=== PATIENT | female | born 1990 | race Two or more races ===

== ENCOUNTER 2018-05-30 14:16 | Emergency (ER) | payer OTHER ==
[~2018-05-30] VITALS: Ht 152.4 cm; Wt 68.0 kg
[2018-05-30] MEDS ORDERED: ONDANSETRON HCL/PF 4 MG/2 ML VIAL IVP ONE (14:30)
[2018-05-30] MEDS ORDERED: MORPHINE SULFATE INJ 2 MG/ML DISP.SYRIN IV ONE (14:30)
[2018-05-30] MEDS ORDERED: IV NS 0.9% 500 ML BAG IV ONE (14:30)
[2018-05-30 14:39] LABS: BASOPHILS % (AUTO) 0.7 % (0.0-2.0); EOSINOPHILS % (AUTO) 0.6 % (0.0-6.0); HEMATOCRIT 36 % (33-45); HEMOGLOBIN 12.1 g/dL (11.5-14.8); LYMPHOCYTES # (AUTO) 1.6 /CMM (0.8-4.8); LYMPHOCYTES % (AUTO) 23.5 % (20.0-44.0); MEAN CORPUSCULAR HGB CONC 34 g/dl (31.0-36.0); MEAN CORPUSCULAR VOLUME 95 fL (82-100); MONOCYTES # (AUTO) 0.5 /CMM (0.1-1.30); MONOCYTES % (AUTO) 7.6 % (2.0-12.0); NEUTROPHILS # (AUTO) 4.5 /CMM (1.8-8.9); NEUTROPHILS % (AUTO) 67.6 % (43.0-81.0); PLATELET COUNT (AUTO) 351 /CMM (150-450); RED BLOOD CELL COUNT(AUTO) 3.77 MIL/uL (4.0-5.2); WHITE BLOOD COUNT (AUTO) 6.6 K/uL (4.3-11.0)
[2018-05-30 14:47] LABS: CALCIUM, SERUM 9.2 mg/dL (8.5-10.1); CREATININE 0.7 mg/dL (0.6-1.3); POTASSIUM 3.4 mmol/L (3.5-5.1)
[2018-05-30] MEDS ORDERED: MORPHINE SULFATE INJ 4 MG/ML DISP.SYRIN ONE (14:47)
[2018-05-30] MEDS ORDERED: ONDANSETRON HCL/PF 4 MG/2 ML VIAL ONE (14:47)
--- NOTE | 2018-05-30 14:50 | NUR ---
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 REPORTS 1 EPISODE OF HEMATURIA AFTER ARRIVAL TO ER. RESP EVEN UNLABORED. SKIN WARM DRY. PT GUARDING, ROLLING AROUND ON BED, MOANING. MEDICATED PER MD ORDER.
[2018-05-30 14:52] LABS: ALBUMIN 4.1 g/dL (3.4-5.0); BILIRUBIN,DIRECT 0.1 mg/dL (0.0-0.2); BILIRUBIN,TOTAL 0.3 mg/dL (0.2-1.0); TOTAL PROTEIN, SERUM 7.9 g/dL (6.4-8.2)
[2018-05-30 14:53] LABS: APPEARANCE,URINE Cloudy (CLEAR); BILIRUBIN,URINE SMALL (NEGATIVE); BLOOD, URINE Large Ery/uL (NEGATIVE); COLOR,URINE Red (YELLOW); KETONES,URINE 40 (NEGATIVE); LEUKOCYTE ESTERASE ,URINE Trace (NEGATIVE); NITRITE, URINE Negative (NEGATIVE); PROTEIN,URINE 100 mg/dl (NEGATIVE); UGLUCOSE Negative (NEGATIVE); UROBILINOGEN,URINE 0.2 EU/dL (0.2)
--- NOTE | 2018-05-30 14:54 | NUR ---
US AT BEDSIDE
[2018-05-30 15:07] LABS: BACTERIA,URINE Few /HPF (None Seen); RBC,URINE TOO NUMEROUS TO COUN /HPF (0-2); SQUAMOUS EPITHELIAL CELL,UR Moderate /HPF (None Seen)
[2018-05-30 15:09] LABS: WBC,URINE 0-3 /HPF (0-3)
--- NOTE | 2018-05-30 17:14 | NUR ---
RESTING QUIETLY, NAD NOTED.
--- NOTE | 2018-05-30 18:02 | NUR ---
IV removed. Catheter intact and site benign. Pressure and 4x4 applied to site. No bleeding noted. Patient discharged to home in stable condition. Written and verbal after care instructions given. Patient verbalizes understanding of instruction. AMBULATORY WITH STEADY GIT. PROVIDED WITH WORK NOTE PER PT REQUEST.
[2018-05-30 18:04] VITALS: BP 125/71
== END 2018-05-30 18:04 | disposition home or self-care (01) ==
LOC: ER 14:17
DX: N13.2 Hydronephrosis with renal and ureteral calculous obstruction (principal); Z60.2 Problems related to living alone
CPT/HCPCS: 36415; 74176; 76705; 76856; 80048; 80076; 81001; 83690; 85025; 96374; 96375; 99284; A4606; J2270; J2405; J7040; 81000-TC